=== PATIENT | female | born 1955 | race Caucasian/White ===

== ENCOUNTER 2017-02-04 17:58 | Emergency (ER) | payer OTHER ==
[2017-02-04] MEDS ORDERED: Diph,Pert(Acell),Tet Vac 0.5 ML SYR IM ONE (18:13)
--- NOTE | 2017-02-04 18:51 | Emergency Department Record ---
History of Present Illness - General Chief Complaint: Laceration(s) Stated Complaint: LACERATION Time Seen by Provider: 02/04/17 18:10 Source: Patient Mode of Arrival: Ambulatory Limitations: No limitations - History of Present Illness Initial Commments: The patient cut her L thumb on a meat pumper about a half hour ago. Her Td is not UTD. The Lac is a flap type laceration to the distal finger. Onset/Timin -: Minutes(s) Place: Home Associated Symptoms: None Treatments Prior to Arrival: Bandage - Tyler Coma Scale Eye Response: (4) Open spontaneously Motor Response: (6) Obeys commands Verbal Response: (5) Oriented Tyler Total: 15 - Related Data Hx Tetanus Toxoid Vaccination: No Patient Tetanus UTD (within 5 yrs): No Home Medications Medication Instructions Recorded Confirmed Last Taken Amlodipine Besylate [Norvasc] 10 mg PO DAILY 02/04/17 02/04/17 02/04/17 Loratadine 10 mg PO DAILY 02/04/17 02/04/17 02/04/17 Rosuvastatin Calcium [Crestor] 10 mg PO DAILY 02/04/17 02/04/17 02/04/17 Previous Rx's Medication Instructions Recorded Cephalexin [Keflex] 500 mg PO QID #20 cap 02/04/17 Allergies Allergy/AdvReac Type Severity Reaction Status Date / Time clarithromycin [From Biaxin] Allergy Intermediate RASH Verified 02/04/17 18:09 Travel Screening - Travel/Exposure Within Last 30 Days Have you traveled within the last 30 days?: No Review of Systems Constitutional: Denies: Chills, Fever Past Medical History - SOCIAL HISTORY Smoking Status: Former smoker Alcohol Use: None Drug Use: None - RESPIRATORY Hx Respiratory Disorders: Yes Hx Asthma: Yes Hx COPD: Yes Comment:: seasonal allergies - CARDIOVASCULAR Hx Cardio Disorders: Yes Hx Hypertension: Yes Comment:: MVP. high cholesterol - NEURO Hx Neuro Disorders: No - GI Hx GI Disorders: No - Hx Genitourinary Disorders: No - ENDOCRINE Hx Endocrine Disorders: No - MUSCULOSKELETAL Hx Musculoskeletal Disorders: No - PSYCH Hx Psych Problems: No - HEMATOLOGY/ONCOLOGY Hx Hematology/Oncology Disorders: No Hx Cancer: (Squamous cell on right shoulder) Family Medical History Any Significant Family History?: Yes Hx HTN: Children Physical Exam - General General Appearance: Alert, Cooperative, No acute distress - Head Head exam: Atraumatic, Normocephalic - Extremities Extremities exam: Tenderness (There is tenderness at the lac site.). negative: Normal inspection (There is a 2 cm superficial flap lac to the distal L thumb.) Image of Finger Tip: 1 - R thumb flap laceration. Course Vital Signs 02/04/17 18:05 Temperature 98.3 F Pulse Rate 105 H Respiratory 20 Rate Blood Pressure 115/65 Pulse Ox 96 - Reevaluation(s) Reevaluation #1: Procedure note: The L thumb was anesth with a digital block using 3 cc's of Lido 1%. The lac was very superficial and was cleansed with sterile saline and prepped with betadine. The lac was closed with 6 4.0 nylon sutures. There were no complications. 02/04/17 18:48 Disposition Disposition: Discharge Clinical Impression: Laceration of thumb Qualifiers: Encounter type: initial encounter Damage to nail status: without damage Foreign body presence: without foreign body Laterality: right Qualified Code(s) : S61.011A - Laceration without foreign body of right thumb without damage to nail, initial encounter Disposition: Home, Self-Care Condition: (2) Stable Instructions: Laceration (ED) Additional Instructions: Keep dry for 2 days then no soaking or swimming. Watch for signs of infection. Take the keflex as directed. Have the sutures removed in 10 days. Prescriptions: Cephalexin [Keflex] 500 mg PO QID #20 cap Forms: Patient Portal Access Time of Disposition: 18:51 Quality - Quality Measures Quality Measures: N/A - Blood Pressure Screening View Details: Yes Does Patient Have Any of the Following: No Blood Pressure Classification: Normal BP Reading Systolic Measurement: 115 Diastolic Measurement: 65 Screening for High Blood Pressure: < Normal BP, F/U Not Required > [G8783]
== END 2017-02-04 19:00 | disposition home or self-care (01) ==
LOC: ER 17:58
DX: S61.012A Laceration without foreign body of left thumb without damage to nail, initial encounter (principal); W31.89XA Contact with other specified machinery, initial encounter
CPT/HCPCS: 12001; 90715; 96372; 99283

== ENCOUNTER 2017-02-14 13:00 | Emergency (ER) | payer OTHER ==
--- NOTE | 2017-02-14 13:56 | Emergency Department Record ---
History of Present Illness - General Chief Complaint: Suture removal Stated Complaint: SUTURE REMOVAL/RT HAND THUMB Time Seen by Provider: 02/14/17 13:50 Source: Patient - History of Present Illness Initial Comments: Here for suture removal day 10 from right thumb. Stitches are itchy but no problems. Onset/Timin -: Days(s) Returns Today for: Staple/stitch removal Symptoms Since Prior Visit: No new symptoms Associated Symptoms: None - Related Data Previous Rx's Medication Instructions Recorded Cephalexin [Keflex] 500 mg PO QID #20 cap 02/14/17 Allergies Allergy/AdvReac Type Severity Reaction Status Date / Time clarithromycin [From Biaxin] Allergy Intermediate RASH Verified 02/04/17 18:09 Travel Screening - Travel/Exposure Within Last 30 Days Have you traveled within the last 30 days?: No - Travel/Exposure Within Last Year Have you traveled outside the [place] in the last year?: No - Additonal Travel Details Have you been exposed to anyone with a communicable illness?: No - Travel Symptoms Symptom Screening: None Review of Systems Reviewed: No additional complaints except as noted below Constitutional: Reports: As per HPI. Denies: Chills, Fever, Malaise, Night sweats, Weakness, Weight change Eyes: Reports: As per HPI. Denies: Eye discharge, Eye pain, Photophobia, Vision change ENT: Reports: As per HPI. Denies: Congestion, Dental pain, Ear pain, Epistaxis , Hearing loss, Throat pain Respiratory: Reports: As per HPI. Denies: Cough, Dyspnea, Hemoptysis, Stridor, Wheezes Cardiovascular: Reports: As per HPI. Denies: Arrhythmia, Chest pain, Dyspnea on exertion, Edema, Murmurs, Orthopnea, Palpitations, Paroxysmal nocturnal dyspnea, Rheumatic Fever, Syncope Endocrine: Reports: As per HPI. Denies: Fatigue, Heat or cold intolerance, Polydipsia, Polyuria Gastrointestinal: Reports: As per HPI. Denies: Abdominal pain, Constipation, Diarrhea, Hematemesis, Hematochezia, Melena, Nausea, Vomiting Genitourinary: Reports: As per HPI. Denies: Abnormal menses, Discharge, Dyspareunia, Dysuria, Frequency, Hematuria, Incontinence, Retention, Urgency Musculoskeletal: Reports: As per HPI. Denies: Arthralgia, Back pain, Gout, Joint swelling, Myalgia, Neck pain Skin: Reports: As per HPI. Denies: Bruising, Change in color, Change in hair/ nails, Lesions, Pruritus, Rash Neurological: Reports: As per HPI. Denies: Abnormal gait, Confusion, Headache, Numbness, Paresthesias, Seizure, Tingling, Tremors, Vertigo, Weakness Psychiatric: Reports: As per HPI. Denies: Anxiety, Auditory hallucinations, Depression, Homicidal thoughts, Suicidal thoughts, Visual hallucinations Hematological/Lymphatic: Reports: As per HPI. Denies: Anemia, Blood Clots, Easy bleeding, Easy bruising, Swollen glands Past Medical History - SOCIAL HISTORY Smoking Status: Former smoker - RESPIRATORY Hx Respiratory Disorders: Yes Hx Asthma: Yes Hx COPD: Yes Comment:: seasonal allergies - CARDIOVASCULAR Hx Cardio Disorders: Yes Hx Hypertension: Yes Comment:: MVP. high cholesterol - NEURO Hx Neuro Disorders: No - GI Hx GI Disorders: No - Hx Genitourinary Disorders: No - ENDOCRINE Hx Endocrine Disorders: No - MUSCULOSKELETAL Hx Musculoskeletal Disorders: No - PSYCH Hx Psych Problems: No - HEMATOLOGY/ONCOLOGY Hx Hematology/Oncology Disorders: No Hx Cancer: (Squamous cell on right shoulder) Family Medical History Any Significant Family History?: Yes Hx HTN: Children Physical Exam - General General Appearance: Alert, Oriented x3, Cooperative, No acute distress - Head Head exam: Normal inspection - Eye Eye exam: Normal appearance, PERRL Pupils: Normal accommodation - ENT ENT exam: Normal exam, Normal external ear exam Ear exam: Normal external inspection. negative: External canal tenderness Nasal Exam: Normal inspection. negative: Discharge, Sinus tenderness Mouth exam: Normal external inspection Teeth exam: Normal inspection. negative: Dental caries Throat exam: Normal inspection. negative: Tonsillar erythema, Tonsillar exudate - Neck Neck exam: Normal inspection, Full ROM. negative: Tenderness - Respiratory Respiratory exam: negative: Respiratory distress - Cardiovascular Cardiovascular Exam: Regular rate - GI/Abdominal GI/Abdominal exam: negative: Tenderness - Rectal Rectal exam: Deferred - exam: Deferred - Extremities Extremities exam: Normal inspection, Full ROM, Normal capillary refill, Other ( Right thumb with well healed wound, sutures tense and painful on removal. Localized erythema at thumb wound edges. CMS intact.). negative: Tenderness - Back Back exam: Reports: Normal inspection, Full ROM. Denies: Muscle spasm, Rash noted, Tenderness - Neurological Neurological exam: Alert, Normal gait, Oriented X3, Reflexes normal - Psychiatric Psychiatric exam: Normal affect, Normal mood - Skin Skin exam: Dry, Intact, Normal color, Warm Course Vital Signs 02/14/17 02/14/17 13:15 13:20 Temperature 98.6 F 98.6 F Pulse Rate 97 H Pulse Rate [ 97 H Right] Respiratory 20 20 Rate Blood Pressure 134/72 [Left Arm] Pulse Ox 97 94 L - Reevaluation(s) Reevaluation #1: Patient was instructed to keep her thumb fully covered for one week without fail and to NOT use her right hand. Keflex pill and script given. 02/14/17 13:56 Medical Decision Making - Management Options MDM Management: No Additional Work-up Planned Disposition Disposition: Discharge Clinical Impression: Encounter for removal of sutures, Wound infection Disposition: Home, Self-Care Condition: (1) Good Instructions: Stitches Removal (ED) Additional Instructions: Keep covered for protection. Kelfex 500 mg four times a day for 10 days until gone. DO NOT USE HAND FOR ONE WEEK Allow steri strips to wear off. PCP follow up if needed. Prescriptions: Cephalexin [Keflex] 500 mg PO QID #20 cap Quality - Quality Measures Quality Measures: N/A - Blood Pressure Screening Does Patient Have Any of the Following: No Blood Pressure Classification: Pre-Hypertensive BP Reading Systolic Measurement: 134 Diastolic Measurement: 72 Screening for High Blood Pressure: < Normal BP, F/U Not Required > [G8783]
[2017-02-14] MEDS ORDERED: CEPHALEXIN 500 MG CAPSULE PO STA (13:57)
--- NOTE | 2017-02-14 14:16 | Emergency Department Record ---
History of Present Illness - General Chief Complaint: Suture removal Stated Complaint: SUTURE REMOVAL/RT HAND THUMB Time Seen by Provider: 02/14/17 13:50 Source: Patient - History of Present Illness Onset/Timin -: Days(s) Returns Today for: Staple/stitch removal Symptoms Since Prior Visit: No new symptoms Associated Symptoms: None - Related Data Previous Rx's Medication Instructions Recorded Cephalexin [Keflex] 500 mg PO QID #20 cap 02/14/17 Cephalexin [Keflex] 500 mg PO QID #20 cap 02/14/17 Allergies Allergy/AdvReac Type Severity Reaction Status Date / Time clarithromycin [From Biaxin] Allergy Intermediate RASH Verified 02/04/17 18:09 Travel Screening - Travel/Exposure Within Last 30 Days Have you traveled within the last 30 days?: No - Travel/Exposure Within Last Year Have you traveled outside the [place] in the last year?: No - Additonal Travel Details Have you been exposed to anyone with a communicable illness?: No - Travel Symptoms Symptom Screening: None Review of Systems Constitutional: Reports: As per HPI. Denies: Chills, Fever, Malaise, Night sweats, Weakness, Weight change Eyes: Reports: As per HPI. Denies: Eye discharge, Eye pain, Photophobia, Vision change ENT: Reports: As per HPI. Denies: Congestion, Dental pain, Ear pain, Epistaxis , Hearing loss, Throat pain Respiratory: Reports: As per HPI. Denies: Cough, Dyspnea, Hemoptysis, Stridor, Wheezes Cardiovascular: Reports: As per HPI. Denies: Arrhythmia, Chest pain, Dyspnea on exertion, Edema, Murmurs, Orthopnea, Palpitations, Paroxysmal nocturnal dyspnea, Rheumatic Fever, Syncope Endocrine: Reports: As per HPI. Denies: Fatigue, Heat or cold intolerance, Polydipsia, Polyuria Gastrointestinal: Reports: As per HPI. Denies: Abdominal pain, Constipation, Diarrhea, Hematemesis, Hematochezia, Melena, Nausea, Vomiting Genitourinary: Reports: As per HPI. Denies: Abnormal menses, Discharge, Dyspareunia, Dysuria, Frequency, Hematuria, Incontinence, Retention, Urgency Musculoskeletal: Reports: As per HPI. Denies: Arthralgia, Back pain, Gout, Joint swelling, Myalgia, Neck pain Skin: Reports: As per HPI. Denies: Bruising, Change in color, Change in hair/ nails, Lesions, Pruritus, Rash Neurological: Reports: As per HPI. Denies: Abnormal gait, Confusion, Headache, Numbness, Paresthesias, Seizure, Tingling, Tremors, Vertigo, Weakness Psychiatric: Reports: As per HPI. Denies: Anxiety, Auditory hallucinations, Depression, Homicidal thoughts, Suicidal thoughts, Visual hallucinations Hematological/Lymphatic: Reports: As per HPI. Denies: Anemia, Blood Clots, Easy bleeding, Easy bruising, Swollen glands Past Medical History - SOCIAL HISTORY Smoking Status: Former smoker - RESPIRATORY Hx Respiratory Disorders: Yes Hx Asthma: Yes Hx COPD: Yes Comment:: seasonal allergies - CARDIOVASCULAR Hx Cardio Disorders: Yes Hx Hypertension: Yes Comment:: MVP. high cholesterol - NEURO Hx Neuro Disorders: No - GI Hx GI Disorders: No - Hx Genitourinary Disorders: No - ENDOCRINE Hx Endocrine Disorders: No - MUSCULOSKELETAL Hx Musculoskeletal Disorders: No - PSYCH Hx Psych Problems: No - HEMATOLOGY/ONCOLOGY Hx Hematology/Oncology Disorders: No Hx Cancer: (Squamous cell on right shoulder) Family Medical History Any Significant Family History?: Yes Hx HTN: Children Course Vital Signs 02/14/17 02/14/17 13:15 13:20 Temperature 98.6 F 98.6 F Pulse Rate 97 H Pulse Rate [ 97 H Right] Respiratory 20 20 Rate Blood Pressure 134/72 [Left Arm] Pulse Ox 97 94 L Disposition Clinical Impression: Encounter for removal of sutures, Wound infection Disposition: Home, Self-Care Condition: (1) Good Instructions: Stitches Removal (ED) Additional Instructions: Keep covered for protection. Kelfex 500 mg four times a day for 10 days until gone. DO NOT USE HAND FOR ONE WEEK Allow steri strips to wear off. PCP follow up if needed. Prescriptions: Cephalexin [Keflex] 500 mg PO QID #20 cap Cephalexin [Keflex] 500 mg PO QID #20 cap Forms: Patient Portal Access Quality - Quality Measures Quality Measures: N/A - Blood Pressure Screening Does Patient Have Any of the Following: No Blood Pressure Classification: Pre-Hypertensive BP Reading Systolic Measurement: 134 Diastolic Measurement: 72 Screening for High Blood Pressure: < Normal BP, F/U Not Required > [G8783]
== END 2017-02-14 14:21 | disposition home or self-care (01) ==
LOC: ER 13:00
DX: Z48.02 Encounter for removal of sutures (principal); T81.4XXA Infection following a procedure, initial encounter; L08.9 Local infection of the skin and subcutaneous tissue, unspecified

== ENCOUNTER 2017-05-25 16:18 | Emergency (ER) | payer OTHER ==
[2017-05-25] MEDS ORDERED: NEOMYCIN/POLYMYXIN B SULF/HC 10ML BTL OT ONE (16:31)
--- NOTE | 2017-05-25 16:37 | Emergency Department Record ---
History of Present Illness - General Chief complaint: ENT Stated complaint: LT EAR PAIN Time Seen by Provider: 05/25/17 16:31 Source: Patient Mode of Arrival: Ambulatory Limitations: No limitations - History of Present Illness Initial comments: 61 yo female presents with left ear pain for several days. She had a cerum impaction. She has been using drops and oils. She felt like she cleared a large amount of wax out but she has a muffled feeling and pain. No blood or pus. No fevers. She has mild congestion and minimal cough. No right ear concerns. MD complaint: Ear pain -: Days(s) Location: L ear Severity: Moderate Consistency: Constant Improves with: None Worsens with: Movement Context- Ear: Direct trauma (lost of cleaning the last several days) - Related Data Previous Rx's Medication Instructions Recorded Cephalexin [Keflex] 500 mg PO QID #20 cap 02/14/17 Cephalexin [Keflex] 500 mg PO QID #20 cap 02/14/17 Allergies Allergy/AdvReac Type Severity Reaction Status Date / Time clarithromycin [From Biaxin] Allergy Intermediate RASH Verified 05/25/17 16:30 Review of Systems Constitutional: Denies: Chills, Fever, Weakness Eyes: Denies: Eye discharge, Photophobia ENT: Reports: Ear pain, Hearing loss (muffled). Denies: Congestion, Dental pain , Epistaxis, Throat pain Respiratory: Reports: Cough. Denies: Dyspnea Cardiovascular: Denies: Chest pain, Syncope Endocrine: Denies: Fatigue Gastrointestinal: Denies: Abdominal pain, Diarrhea, Nausea, Vomiting Genitourinary: Denies: Dysuria Musculoskeletal: Denies: Arthralgia, Back pain, Myalgia Skin: Denies: Bruising, Change in color, Rash Neurological: Denies: Headache, Numbness, Weakness Psychiatric: Denies: Anxiety Hematological/Lymphatic: Denies: Blood Clots, Easy bleeding, Easy bruising, Swollen glands Past Medical History - SOCIAL HISTORY Smoking Status: Former smoker - RESPIRATORY Hx Respiratory Disorders: Yes Hx Asthma: Yes Hx COPD: Yes Comment:: seasonal allergies - CARDIOVASCULAR Hx Cardio Disorders: Yes Hx Hypertension: Yes Comment:: MVP. high cholesterol - NEURO Hx Neuro Disorders: No - GI Hx GI Disorders: No - Hx Genitourinary Disorders: No - ENDOCRINE Hx Endocrine Disorders: No - MUSCULOSKELETAL Hx Musculoskeletal Disorders: No - PSYCH Hx Psych Problems: No - HEMATOLOGY/ONCOLOGY Hx Hematology/Oncology Disorders: No Hx Cancer: (Squamous cell on right shoulder) Family Medical History Hx HTN: Children Physical Exam - General General Appearance: Alert, Oriented x3, Cooperative, No acute distress Limitations: No limitations - Head Head exam: Atraumatic, Normal inspection - Eye Eye exam: Normal appearance. negative: Conjunctival injection, Scleral icterus - ENT ENT exam: Mucous membranes moist. negative: TM's normal bilaterally (Left TM with very little residual cerumen, no blood or pus, no erythema of the TM, no signs of OM) Ear exam: External canal tenderness, Other (mild canal erythema). negative: Normal external inspection, Auricular hematoma, Auricular trauma Nasal Exam: Normal inspection. negative: Sinus tenderness Mouth exam: Normal external inspection Teeth exam: Normal inspection Throat exam: Normal inspection. negative: Tonsillar erythema, Tonsillomegaly, Tonsillar exudate, R peritonsillar mass, L peritonsillar mass - Neck Neck exam: Normal inspection, Full ROM. negative: Tenderness - Respiratory Respiratory exam: Normal lung sounds bilaterally. negative: Accessory muscle use, Respiratory distress, Rhonchi, Stridor, Wheezes - Cardiovascular Cardiovascular Exam: Regular rate, Normal rhythm, Normal heart sounds - Extremities Extremities exam: Normal inspection - Back Back exam: Reports: Normal inspection - Neurological Neurological exam: Alert, Normal gait, Oriented X3. negative: Altered - Psychiatric Psychiatric exam: Normal affect, Normal mood - Skin Skin exam: Dry, Intact, Normal color, Warm Course - Reevaluation(s) Reevaluation #1: 05/25/17 16:36 There is mild OE on examination No blood or pus, no perforation on examination She will be given cortisporin otic for the inflammation of the external canal Disposition Disposition: Discharge Clinical Impression: Otitis externa Qualifiers: Otitis externa type: unspecified type Chronicity: acute Laterality: left Qualified Code(s): H60.502 - Unspecified acute noninfective otitis externa, left ear Disposition: Home, Self-Care Condition: (1) Good Instructions: Otitis Externa (ED) Additional Instructions: Apply the drops every 6 hours Follow up with your doctor for a recheck in the next week Return if pus, blood, fever or new concerns Time of Disposition: 16:37 Quality - Quality Measures Quality Measures: N/A - Blood Pressure Screening Does Patient Have Any of the Following: Active Dx of HTN Systolic Measurement: ~ Screening for High Blood Pressure: Patient Exclusion, Hx of HTN [G9744]
== END 2017-05-25 16:59 | disposition home or self-care (01) ==
LOC: ER 16:18
DX: H60.502 Unspecified acute noninfective otitis externa, left ear (principal); I10 Essential (primary) hypertension; F17.210 Nicotine dependence, cigarettes, uncomplicated
CPT/HCPCS: 99282

== ENCOUNTER 2017-06-28 14:09 | Emergency (ER) | payer OTHER | END 2017-06-28 14:30 | disposition left against medical advice (07) | LOC: ER 14:09 | DX: Z53.20 Procedure and treatment not carried out because of patient's decision for unspecified reasons (principal) ==

== ENCOUNTER 2017-06-29 11:53 | Emergency (ER) | payer OTHER ==
--- NOTE | 2017-06-29 12:21 | Emergency Department Record ---
History of Present Illness - General Chief complaint: ENT Stated complaint: SORE THROAT Time Seen by Provider: 06/29/17 12:20 Source: Patient, Family Mode of Arrival: Ambulatory Limitations: No limitations - History of Present Illness Initial comments: 61 yo female presents with sore throat, congestion, and drainage for about one week. She has greenish thick drainage. No fevers. No nausea, vomiting or diarrhea. She did initially have a cough but that is gone. No chest pain or shortness of breath. No swelling or edema. She stopped smoking about 2 years ago. MD complaint: Other Onset/Timin -: Week(s) Consistency: Constant Improves with: None Worsens with: None Associated Symptoms: Cough - Related Data Previous Rx's Medication Instructions Recorded Amoxicillin/Potassium Clav 1 each PO BID #20 tablet 06/29/17 [Augmentin 875-125 Tablet] Prednisone [Prednisone 20Mg] 20 mg PO BID #10 tab 06/29/17 Allergies Allergy/AdvReac Type Severity Reaction Status Date / Time clarithromycin [From Biaxin] Allergy Intermediate RASH Verified 05/25/17 16:30 Horse/Equine Containing Allergy ANAPHYLAXIS Verified 06/29/17 12:20 Products Travel Screening - Travel/Exposure Within Last 30 Days Have you traveled within the last 30 days?: No - Travel/Exposure Within Last Year Have you traveled outside the [place] in the last year?: No - Additonal Travel Details Have you been exposed to anyone with a communicable illness?: No - Travel Symptoms Symptom Screening: None Review of Systems Constitutional: Denies: Chills, Fever, Malaise, Weakness Eyes: Denies: Eye discharge ENT: Reports: Congestion, Throat pain. Denies: Ear pain Respiratory: Denies: Cough, Dyspnea, Hemoptysis, Stridor, Wheezes Cardiovascular: Denies: Chest pain, Palpitations, Syncope Endocrine: Denies: Fatigue Gastrointestinal: Denies: Abdominal pain, Diarrhea, Nausea, Vomiting Genitourinary: Denies: Dysuria, Urgency Musculoskeletal: Denies: Arthralgia, Back pain, Joint swelling, Myalgia Skin: Denies: Bruising, Change in color, Rash Neurological: Denies: Headache, Numbness, Weakness Psychiatric: Denies: Anxiety Hematological/Lymphatic: Denies: Blood Clots, Easy bleeding, Easy bruising, Swollen glands Past Medical History - SOCIAL HISTORY Smoking Status: Former smoker Alcohol Use: Occasional Drug Use: None - RESPIRATORY Hx Respiratory Disorders: Yes Hx Asthma: Yes Hx COPD: Yes Comment:: seasonal allergies - CARDIOVASCULAR Hx Cardio Disorders: Yes Hx Hypertension: Yes Comment:: MVP. 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 negative: Conjunctival injection, Scleral icterus - ENT ENT exam: Mucous membranes moist, Normal orophraynx, TM's normal bilaterally. negative: Mucous membranes dry Ear exam: Normal external inspection Nasal Exam: Discharge. negative: Active bleeding, Dried blood Mouth exam: Normal external inspection, Tongue normal Teeth exam: Normal inspection. negative: Dental caries Throat exam: Normal inspection. negative: Tonsillar erythema, Tonsillomegaly, Tonsillar exudate, R peritonsillar mass, L peritonsillar mass - Neck Neck exam: Normal inspection, Full ROM. negative: Lymphadenopathy, Tenderness - Respiratory Respiratory exam: Normal lung sounds bilaterally. negative: Respiratory distress - Cardiovascular Cardiovascular Exam: Regular rate, Normal rhythm, Normal heart sounds - GI/Abdominal GI/Abdominal exam: Soft. negative: Tenderness - Rectal Rectal exam: Deferred - exam: Deferred - Extremities Extremities exam: Normal inspection, Normal capillary refill. negative: Pedal edema - Back Back exam: Reports: Normal inspection - Neurological Neurological exam: Alert, Oriented X3 - Psychiatric Psychiatric exam: Normal affect, Normal mood. negative: Agitated, Anxious - Skin Skin exam: Dry, Intact, Normal color, Warm Course Vital Signs 06/29/17 12:08 Temperature 98.2 F Pulse Rate 81 Respiratory 16 Rate Blood Pressure 119/98 Pulse Ox 98 Disposition Disposition: Discharge Clinical Impression: Sinusitis Disposition: Home, Self-Care Condition: (1) Good Instructions: Sinusitis (ED) Additional Instructions: Call your doctor for follow up in the next week Return if worse, fever, short of breath. Look under [employer] for the best deals on prescription prices. Prescriptions: Amoxicillin/Potassium Clav [Augmentin 875-125 Tablet] 1 each PO BID #20 tablet Prednisone [Prednisone 20Mg] 20 mg PO BID #10 tab Forms: Patient Portal Access Time of Disposition: 12:34 Quality - Quality Measures Quality Measures: N/A - Blood Pressure Screening Does Patient Have Any of the Following: No Blood Pressure Classification: Pre-Hypertensive BP Reading Systolic Measurement: 135 Diastolic Measurement: 89 Screening for High Blood Pressure: < Pre-Hypertensive BP, F/U Documented > [ G8950] Pre-Hypertensive Follow-up Interventions: Referral to alternative/primary care provider.
== END 2017-06-29 12:50 | disposition home or self-care (01) ==
LOC: ER 11:53
DX: J01.90 Acute sinusitis, unspecified (principal); J02.9 Acute pharyngitis, unspecified; R05 Cough; I10 Essential (primary) hypertension; Z87.891 Personal history of nicotine dependence
CPT/HCPCS: 99282

== ENCOUNTER 2018-12-23 08:41 | Emergency (ER) | payer OTHER ==
[2018-12-23] MEDS ORDERED: HYDROMORPHONE HCL 2 MG/ML VIAL IVP ONE (09:32)
[2018-12-23] MEDS ORDERED: ONDANSETRON HCL IV 4 MG/2 ML VIAL IVP ONE (09:32)
[2018-12-23 09:51] LABS: ABSOLUTE NEUTROPHIL COUNT 4.53; BASO % 0.5 % (0-6); EOS % 1.7 % (0-6); GRAN % 60.5 % (47-80); HEMATOCRIT 38.4 % (35.0-47.0); HEMOGLOBIN 12.4 gm/dl (11.6-16.0); LYMPH % 28.9 % (16-45); MEAN CORPUSCULAR HGB CONC 32.3 g/dl (32-36); MEAN PLATELET VOLUME 9.1 fl (7.4-10.4); MONO % 8.4 % (0-9); PLATELET COUNT 304 K/uL (130-400); RED CELL DISTRIBUTION WIDTH 13.9 % (11.5-14.5); URINE APPEARANCE CLEAR; URINE BILIRUBIN NEGATIVE (NEGATIVE); URINE BLOOD NEGATIVE (NEGATIVE); URINE COLOR YELLOW; URINE GLUCOSE (UA) NEGATIVE (NEGATIVE); URINE KETONE NEGATIVE (NEGATIVE); URINE NITRITE NEGATIVE (NEGATIVE); URINE PROTEIN NEGATIVE (NEGATIVE); URINE UROBILINOGEN 0.2 E.U./dL (0.20 - 1.00); WHITE BLOOD COUNT W/O DIFF 7.5 K/uL (4.2-12.2)
[2018-12-23 10:00] LABS: BLOOD UREA NITROGEN 18 mg/dL (8-23); CREATININE 0.7 mg/dL (0.5-0.9); EST GLOMERULAR FILTRATION RATE > 60 mL/min
[2018-12-23 10:01] LABS: TOTAL PROTEIN 6.8 g/dL (6.6-8.7)
[2018-12-23 10:02] LABS: URINE LEUKOCYTE ESTERASE TRACE (NEGATIVE)
[2018-12-23 10:03] LABS: GLUCOSE,RANDOM 134 mg/dL (74-109); URINE BACTERIA NONE SEEN; URINE EPITHELIAL CELLS 0 - 2 (FEW); URINE RBC NONE SEEN (NONE SEEN); URINE WBC 0 - 2 (0-2/hpf)
[2018-12-23 10:05] LABS: ALT/SGPT 23 U/L (<33)
[2018-12-23 10:06] LABS: ALB/GLOB RATIO 1.7 (1.1-1.8); ALBUMIN 4.3 g/dL (4.0-5.0); ALKALINE PHOSPHATASE 61 U/L (35-104); AST/SGOT 22 U/L (10.0-35.0)
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
--- NOTE | 2018-12-26 09:04 | CT SCAN REPORT ---
EXAM: CT OF THE ABDOMEN AND PELVIS WITH CONTRAST HISTORY: RIGHT FLANK AND RIGHT LOWER QUADRANT PAIN TWO DAYS POST INJURY. TECHNIQUE: Following oral and intravenous contrast administration, helical CT examination of the abdomen and pelvis was performed including delayed images through the kidneys with 95 ml of Omnipaque 300 utilized. Comparison: None. FINDINGS: There is mild dependent atelectasis in each lung base. Additional mild reticular opacity prominence in the lateral bases likely relates to mild chronic interstitial change. No pleural or pericardial effusion. The heart is not enlarged. There are multiple small hypodense masses scattered within the liver. The majority of these are too small for accurate characterization. The largest is located in the posterior segment of the right liver lobe (segment 6). This measures 1.6 x 2.0 cm and has fluid density. It is consistent with a benign cyst. The next largest lesion is located centrally within the medial segment of the left liver lobe (segment 4B). It measures 1.1 cm in maximum diameter and has fluid density. It is also consistent with a simple cyst. The remaining lesions are too small for accurate characterization, but are also likely cysts. No suspicious focal hepatic lesion. The gallbladder is unremarkable and no biliary ductal dilatation is seen. The pancreas and adrenal glands are normal in appearance. Calcified granulomata are scattered throughout an otherwise normal appearing spleen. The kidneys are normal in appearance and excrete contrast into nondilated collecting systems. No intraabdominal nor retroperitoneal lymphadenopathy. There is diffuse atherosclerosis. There is mild ectasia of the infrarenal abdominal aorta measuring 2.3 cm in diameter. No dissection. No pelvic mass, lymphadenopathy, or free pelvic fluid. No gross bowel dilatation nor bowel wall thickening. There is mild diverticulosis of the left colon without evidence of diverticulitis. The appendix is visualized and normal in appearance. No ascites nor free intraperitoneal air. The abdominal wall is intact. No lytic or blastic bone lesion. There are degenerative changes scattered throughout the visualized spine. Grade 1 anterolisthesis of L4 on L5 likely relates to moderate facet arthropathy. Old healed fracture deformities of the lateral right seventh and eighth ribs suspected. IMPRESSION: 1. NO CT EVIDENCE OF AN ACUTE INTRAABDOMINAL NOR INTRAPELVIC PROCESS. SPECIFICALLY, THERE IS NO EVIDENCE OF ACUTE VISCERAL INJURY. 2. NORMAL APPENDIX. 3. COLONIC DIVERTICULOSIS WITHOUT EVIDENCE OF DIVERTICULITIS. 4. HEPATIC CYSTS. 5. HEALED GRANULOMATOUS DISEASE WITHIN THE SPLEEN. 6. POSSIBLE OLD HEALED FRACTURE DEFORMITIES OF THE LATERAL RIGHT SEVENTH AND EIGHTH RIBS. JOB NUMBER: [id number] MTDD
== END 2018-12-23 11:44 | disposition home or self-care (01) ==
LOC: ER 08:41
DX: S29.012A Strain of muscle and tendon of back wall of thorax, initial encounter (principal); S30.0XXA Contusion of lower back and pelvis, initial encounter; M53.3 Sacrococcygeal disorders, not elsewhere classified; R10.9 Unspecified abdominal pain; V94.0XXA Hitting object or bottom of body of water due to fall from watercraft, initial encounter; Y93.16 Activity, rowing, canoeing, kayaking, rafting and tubing; Z87.891 Personal history of nicotine dependence; I10 Essential (primary) hypertension
CPT/HCPCS: 74177; 80053; 81001; 85025; 96374; 96375; 99284; J2405